=== PATIENT | female | born 1935 | race Caucasian/White ===

== ENCOUNTER 2017-06-16 09:31 | Outpatient (CLI) | payer MEDICARE, OTHER ==
--- NOTE | 2017-06-16 11:09 | RAD ---
UPPER GI SERIES WITH DOUBLE CONTRAST: Date: 06-16-17 History: 81-year-old female with dysphagia. Technique: Upright administration of effervescent granules and thick liquid barium. Prone DA SILVA administration of thin liquid barium. FINDINGS: There is herniation of approximately a third of the volume of the stomach superior to the diaphragm. There are tertiary contractions of the mid and distal esophagus. The distal esophagus is displaced by the gastric herniation, and the esophagogastric junction itself is obscured by the hiatal hernia. Th ere is no gastric outlet obstruction and no gross abnormality of the rest of the stomach is identifie d. IMPRESSION: Moderate sized paraesophageal hiatal hernia. POS: [facility]
== END 2017-06-16 09:32 | disposition home or self-care (01) ==
LOC: RAD 09:31
PROVIDERS: ATTEND Internal Medicine Gastroenterology
DX: R13.10 Dysphagia, unspecified (principal); K44.9 Diaphragmatic hernia without obstruction or gangrene
CPT/HCPCS: 74247

== ENCOUNTER 2017-08-02 11:09 | Outpatient (CLI) | payer MEDICARE, OTHER ==
[2017-08-02 12:36] LABS: #Basophils 0.1 thou/uL (0.0-0.2); #Eosinphils 0.1 thou/uL (0.0-0.7); #Lymphocytes 1.5 thou/uL (1.20-3.40); #Monocytes 0.5 thou/uL (0.11-0.59); #Neutrophils 4.3 thou/uL (1.40-6.50); %Basophils 0.9 % (0.0-1.0); %Eosinophils 1.7 % (0.0-10.0); %Lymphocytes 22.9 % (21.0-51.0); %Monocytes 8.1 % (0.0-10.0); %Neutrophils 66.4 % (42.0-75.0); Hemoglobin 12.8 g/dL (12.0-16.0); Mean Corpuscular HGB CONC 31.1 g/dL (32.0-36.0); Mean Corpuscular Volume 80.2 fl (81.0-99.0); Mean Platelet Volume 7.5 fL (7.4-10.4); Platelet Count 306 thou/uL (130-400); RBC Distribution Width 13.5 % (11.5-14.5); Red Blood Cell (RBC) Count 5.14 mill/uL (4.20-5.40); White Blood Cell (WBC) Count 6.5 thou/uL (4.8-10.8)
[2017-08-02 12:57] LABS: ALT (SGPT) 15 U/L (8-55); AST (SGOT) 19 U/L (5-34); Albumin 4.5 g/dL (3.4-4.8); Alkaline Phosphatase 86 U/L (40-150); Anion Gap 16 mmol/L (10-20); BUN (Urea Nitrogen) 14 mg/dL (9.8-20.1); Bilirubin, Total 0.5 mg/dL (0.2-1.2); Calc. Creatinine Clearance 0 mL/min (70-130); Calcium 9.5 mg/dL (7.8-10.44); Carbon Dioxide 21 mmol/L (23-31); Chloride 104 mmol/L (98-107); Estimated GFR-MDRD 64; Globulin 2.6 g/dL (2.4-3.5); Glucose 90 mg/dL (83-110); Potassium 4.4 mmol/L (3.5-5.1); Protein, Total 7.1 g/dL (6.0-8.3); Sodium 137 mmol/L (136-145)
--- NOTE | 2017-08-03 23:38 | EKG ---
Test Reason : Blood Pressure : / mmHG Vent. Rate : 077 BPM Atrial Rate : 077 BPM P-R Int : 194 ms QRS Dur : 082 ms QT Int : 386 ms P-R-T Axes : 005 -34 028 degrees QTc Int : 436 ms Normal sinus rhythm Left axis deviation Voltage criteria for left ventricular hypertrophy Abnormal ECG No previous ECGs available Confirmed by Rosas DOMINGUEZ ([id number]) on 08/03/2017 11:38:17 PM Referred By: MYRNA Confirmed By:Rosas DOMINGUEZ
== END 2017-08-02 11:10 | disposition home or self-care (01) ==
LOC: LABBT 11:09
PROVIDERS: ATTEND Surgery
DX: Z01.810 Encounter for preprocedural cardiovascular examination (principal); Z01.812 Encounter for preprocedural laboratory examination; K44.9 Diaphragmatic hernia without obstruction or gangrene
CPT/HCPCS: 80053; 85025; 93005; 93010

== ENCOUNTER 2017-08-04 06:38 | Inpatient (IN) | payer MEDICARE, OTHER ==
[2017-08-02 11:31] VITALS: BMI 29.2
[2017-08-04] MEDS ORDERED: CEFAZOLIN/Water 2 GM/20 ML SYRINGE ONE (08:22)
[2017-08-04] MEDS ORDERED: Bupivacaine 0.25% HCL 30 ML VIAL ONE (09:54)
[2017-08-04] MEDS ORDERED: Lidocaine 2% w/Epinephrine 1:200K 20 ML VIAL ONE (09:54)
[2017-08-04] MEDS ORDERED: Fentanyl 100 MCG/2 ML VIAL ONE ×2 (10:12)
[2017-08-04] MEDS ORDERED: diphenhydrAMINE 50 MG/ML VIAL IVP PRN ×2 (12:14→13:25)
[2017-08-04] MEDS ORDERED: Promethazine HCl 25 MG/ML VIAL IM PRN ×2 (12:14→13:25)
[2017-08-04] MEDS ORDERED: Dextrose 50% Abboject 50 ML SYRINGE SLOW IVP PRN (12:14)
[2017-08-04] MEDS ORDERED: Ondansetron HCl/PF 4 MG/2 ML Vial IVP PRN ×2 (12:14→18:04)
[2017-08-04] MEDS ORDERED: hydrALAZINE 20 MG/ML VIAL SLOW IVP PRN (12:14)
[2017-08-04] MEDS ORDERED: Hydrocodone-Acetamin 15 ML UDCUP PO PRN (12:14)
[2017-08-04] MEDS ORDERED: Dextrose 5% in Water 1,000 ML IV PRN (12:14)
[2017-08-04] MEDS ORDERED: Meperidine HCl/PF 25 MG/ML VIAL SLOW IVP PRN (12:37)
[2017-08-04] MEDS ORDERED: Morphine Sulfate 2 MG/ML SYRINGE SLOW IVP PRN (12:37)
[2017-08-04] MEDS ORDERED: Promethazine HCl 25 MG/ML VIAL SLOW IVP PRN (12:37)
--- NOTE | 2017-08-04 12:47 | OP ---
PREOPERATIVE DIAGNOSIS: Paraesophageal hernia. SURGEON: Deshaun Torrez M.D. PROCEDURE PERFORMED: Laparoscopic paraesophageal hernia repair with mesh and EGD. INDICATIONS: An 81-year-old female, who has been having quite a bit of dysphagia and some dyspnea. A CT showed a large paraesophageal hernia. This was confirmed by EGD. FINDINGS: About half of her stomach was intrathoracic. PROCEDURE IN DETAIL: After informed consent was obtained, the patient was taken to the operating delia m and given general endotracheal anesthesia, placed in the supine position. Abdomen was prepped and draped in the usual fashion. Local anesthesia infiltrated subcutaneously and deep and a 5-mm incisio n was performed about 8 inches below the xiphoid slight to the left. Veress needle inserted. Drop t est performed. Pneumoperitoneum was created to a volume of 2 liters of carbon dioxide. Utilizing a bladeless 5-mm trocar and 0-degree laparoscope direct visual entry in the abdominal cavity was perfor med. Pneumoperitoneum was then created to a pressure of 15 mmHg. A 0-degree laparoscope inserted un osvaldo direct vision and Brandon liver retractor inserted. Left lobe of liver retracted superiorly. The patient placed in steep reverse Trendelenburg position and a 5-mm port was placed just to the lef t of the falciform, an 8-mm port placed left lateral, and then another 5-mm port placed inferiorly on the left side. A large amount of stomach was intrathoracic, most of which could be reduced, but the n there were some that was still attached with peritoneal adhesions. These were taken down utilizing the LigaSure. Then the peritoneum opened along the right crura with the LigaSure along the anterior surface of the crura and then on the left crura. Then, I was able to create a retroesophageal windo w. A Francis drain then placed around the esophagus allowing me to retract superiorly to completely expose the hiatal opening circumferentially. At this point, the short gastrics were taken down utili zing the LigaSure. A 40-Greek bougie was then inserted and directed into the stomach and a posterio r crural plication was performed utilizing 0-Ethibond with the Sew-Right and tie knot device. Then, the biologic mesh was inserted and placed around the esophagus and sutured to the crura both anterior right and left. Then the Francis drain was removed and the fundus was grasped and brought to the [facility] side of the esophagus. It was sutured from the left fundus to the esophagus to the right fundus with interrupted 2-0 silk sutures tied intracorporeally. This was with the bougie in place. At this point, once the wrap was completed, some TISSEEL tissue sealer was then placed around both the mesh and the wrap to further secure it. The bougie was removed, and an intraoperative endoscopy was perfo rmed. The video endoscope inserted under direct vision and advanced into the stomach. The stomach w as insufflated and retroflexed. The wrap looked good. There was no paraesophageal component, no tor carl. The stomach decompressed. The scope removed. Trocars and retractors then removed. Skin clos ed with interrupted 4-0 Rapide. Dermabond applied. The patient tolerated the procedure well and tra nsferred to recovery in good condition. Sponge and needle count verified correct x2.
[2017-08-04] MEDS ORDERED: Morphine 2 MG/ML SYRINGE ONE (12:54)
[2017-08-04] MEDS ORDERED: D5 1/2 NS w/20 mEq KCL 1,000 ML ONE (13:11)
[2017-08-04] MEDS ORDERED: Fentanyl 5000 MCG/250 ML CADD IVPB PRN (13:25)
[2017-08-04] MEDS ORDERED: diphenhydrAMINE 50 MG/ML VIAL IM PRN (13:25)
[2017-08-04] MEDS ORDERED: Zolpidem Tartrate 5 MG TAB PO PRN (13:25)
[2017-08-04] MEDS ORDERED: diphenhydrAMINE 25 MG CAP PO PRN (13:25)
[2017-08-04] MEDS ORDERED: Naloxone HCl 0.4 mg/ml Vial IV PRN (13:25)
[2017-08-04] MEDS ORDERED: Communication Order-Pharmacy FS SCH (13:30)
[2017-08-04] MEDS ORDERED: Fentanyl 20 MCG/ML 250 ML ONE (14:00)
[2017-08-04] MEDS ORDERED: Lidocaine 1% PF 5 ML VIAL ONE (15:41)
[2017-08-04] MEDS ORDERED: PHENYLEPHRINE-NS 100 MCG/ML 10 ML SYRINGE ONE (15:41)
[2017-08-04] MEDS ORDERED: Glycopyrrolate 0.2 MG/ML 5 ML SYRINGE ONE (15:41)
[2017-08-04] MEDS ORDERED: ePHEDrine/0.9% NaCl/PF SYRINGE 50 mg/10 ml ONE (15:41)
[2017-08-04] MEDS ORDERED: Dexamethasone 20 MG/5 ML VIAL ONE (15:41)
[2017-08-04] MEDS ORDERED: Ondansetron HCl/PF 4 MG/2 ML Vial ONE (15:41)
[2017-08-04] MEDS ORDERED: Propofol 200 MG/20 ML VIAL ONE (15:41)
[2017-08-04] MEDS: D5 1/2 NS w/20 mEq KCL 1,000 ML IV SCH ×2 (17:06→22:05)
[2017-08-04] MEDS: CEFAZOLIN/Water 2 GM/20 ML SYRINGE SLOW IVP SCH (18:40)
[2017-08-05] MEDS: CEFAZOLIN/Water 2 GM/20 ML SYRINGE SLOW IVP SCH (02:39)
[2017-08-05] MEDS: D5 1/2 NS w/20 mEq KCL 1,000 ML IV SCH ×2 (02:39→12:29)
[2017-08-05 05:44] LABS: #Lymphocytes 1.6 thou/uL (1.20-3.40); %Basophils 0.1 % (0.0-1.0); %Eosinophils 0.1 % (0.0-10.0); %Lymphocytes 11.7 % (21.0-51.0); %Monocytes 7.4 % (0.0-10.0); %Neutrophils 80.8 % (42.0-75.0); Hemoglobin 12.2 g/dL (12.0-16.0); Mean Corpuscular HGB CONC 30.9 g/dL (32.0-36.0); Mean Corpuscular Hemoglobin 25.3 pg (27.0-31.0); Mean Corpuscular Volume 81.8 fl (81.0-99.0); Mean Platelet Volume 7.8 fL (7.4-10.4); Platelet Count 302 thou/uL (130-400); RBC Distribution Width 13.8 % (11.5-14.5); Red Blood Cell (RBC) Count 4.83 mill/uL (4.20-5.40); White Blood Cell (WBC) Count 13.6 thou/uL (4.8-10.8)
[2017-08-05 05:56] LABS: Anion Gap 15 mmol/L (10-20); BUN (Urea Nitrogen) 11 mg/dL (9.8-20.1); Calc. Creatinine Clearance 52 mL/min (70-130); Calcium 9.2 mg/dL (7.8-10.44); Carbon Dioxide 25 mmol/L (23-31); Chloride 100 mmol/L (98-107); Estimated GFR-MDRD 59; Glucose 135 mg/dL (83-110); Potassium 4.6 mmol/L (3.5-5.1); Sodium 135 mmol/L (136-145)
[2017-08-05] MEDS ORDERED: Enoxaparin Sodium 40 MG/0.4 ML SYRINGE SC SCH (09:00)
--- NOTE | 2017-08-05 10:05 | RAD ---
UPPER GI SERIES SINGLE COLUMN: Date: 08/05/17 HISTORY: 81-year-old female status post hiatal hernia repair surgery. TECHNIQUE: Patient incrementally swallowed one cup of Gastrografin in the upright position, while fluoroscopy wa s performed. Recumbent overhead radiographic images were obtained. COMPARISON: 06/16/17. FINDINGS: The previously demonstrated moderate sized paraesophageal hiatal hernia has been surgically reduced. Now there is narrowing of the esophagogastric junction, and mild dilation of the rest of the esophagu s, but no high grade obstruction. There is no gastric outlet obstruction, but there is decreased kylee stalsis. There is vertebroplasty cement within the L1 and L2 vertebral bodies. IMPRESSION: 1. Status post fundoplication repair of hiatal hernia. 2. No evidence of major complication. 3. Prior vertebroplasty treatment of L1 and L2 compression fractures. POS: [facility]
[2017-08-05 11:56] VITALS: BP 130/74; TEMP 98
[2017-08-05] MEDS ORDERED: Hydrocodone-Acetamin 15 ML UDCUP PO PRN (13:30)
--- NOTE | 2017-08-05 13:54 | DIS ---
DATE OF ADMISSION: 08/04/2017 DATE OF DISCHARGE: 08/05/2017 DISCHARGE DIAGNOSIS: Large paraesophageal hernia. PROCEDURES DURING ADMISSION: Laparoscopic paraesophageal hernia repair with mesh, intraoperative eso phagogastroscopy, postoperative Gastrografin swallow. HOSPITAL COURSE: The patient was admitted, taken to the operating room where she underwent a repair of the hiatal hernia. Postoperatively, she has done well. X-ray was fine. She was started on liqui ds. She is tolerating well. She is discharged home. Pain is controlled on p.o. medications. She i s discharged on hydrocodone, elixir and Zofran. She will follow up with me in 2 weeks.
[2017-08-05] MEDS ORDERED: Pantoprazole 40 MG VIAL IVP SCH (21:00)
== END 2017-08-05 14:57 | disposition home or self-care (01) | DRG 328 ==
LOC: SDC 06:38 → SURG A 12:14
PROVIDERS: ADMIT Surgery; ATTEND Surgery
PROC: 0BUT4KZ Supplement Diaphragm with Nonautologous Tissue Substitute, Percutaneous Endoscopic Approach (ICD-10-PCS; principal; 2017-08-04)
DX: K44.9 Diaphragmatic hernia without obstruction or gangrene (principal); R06.00 Dyspnea, unspecified; R13.10 Dysphagia, unspecified; I10 Essential (primary) hypertension; Z86.711 Personal history of pulmonary embolism; E03.9 Hypothyroidism, unspecified; E78.2 Mixed hyperlipidemia
CPT/HCPCS: 36415; 74241; 80048; 80053; 85025; 93005; 93010; 94760; J0131; J1100; J1650; J2001; J2270; J2405; J2704; J3010; Q4130; S0020

== ENCOUNTER 2017-11-02 13:02 | Outpatient (CLI) | payer MEDICARE, OTHER ==
--- NOTE | 2017-11-02 14:30 | RAD ---
XR SNIFF TEST: HISTORY: Paralyzed diaphragm. COMPARISON: Chest radiograph from 09/30/2017. FINDINGS: Road Inspector radiograph of the chest demonstrates elevation of the right hemidiaphragm, as well as some thic kening of the right minor fissure. The left lung is relatively clear. A few left basilar nodular op acities. Using the sniff test, there was decreased/no excursion of the right hemidiaphragm. The lef t hemidiaphragm had normal excursion. IMPRESSION: Right diaphragmatic paralysis. POS: [facility]
--- NOTE | 2017-11-04 16:26 | PFT ---
PATIENT HISTORY: HEIGHT: 60 IN WEIGHT:146 SMOKER: NO HOW LONG: PACKS PER DAY PRODUCTIVE COUGH: LUNG DISEASE: PHYSICIAN INTERPRETATION FINAL REPORT: Tool Repair Technician comments patient and good effort and cooperation. She was unable to complete the flow volume loop PRE-bronchodilator. PFT DATA: FVC 1.50 (72%), FEV1 1.21 (89%), FEV1/FVC 0.80. TLC 2.70 (71%), FRC 1.33 (58%), RV 1.06 (62%). Diffusion 10.28 (68%). The FEV1 and FVC are at the lower limits of normal. The reduction is fairly symmetric, suggesting a restrictive process. There is no significant improvement following administration of bronchodilator. TLC and RV are mildly impaired, confirming volume restriction. Diffusion capacity is also just below the lower limits of normal. IMPRESSION: These pulmonary function studies are consistent with mild restrictive lung disease, and mild impairment in gas exchange. Clinical and radiographic correlation for interstitial process should be considered. Tool Repair Technician: JAYLEEN Metal Polisher And Buffer Apprentice: JAYLEEN AMADOR
== END 2017-11-02 13:03 | disposition home or self-care (01) ==
LOC: RAD 13:02
PROVIDERS: ATTEND Internal Medicine
DX: R06.09 Other forms of dyspnea (principal); J98.6 Disorders of diaphragm
CPT/HCPCS: 76000; 94060; 94727; 94729

== ENCOUNTER 2018-03-26 15:37 | Emergency (ER) | payer MEDICARE, OTHER ==
[2018-03-26] MEDS ORDERED: Morphine 4 MG/ML VIAL ONE (16:35)
--- NOTE | 2018-03-26 16:50 | CT ---
CT ABDOMEN AND PELVIS WITHOUT CONTRAST 03/26/18 HISTORY: Abdominal pain. COMPARISON: None. FINDINGS: There is a calcified subcarinal lymph nodes. Scarring in the lung bases. No pericardial effusion. There is calcified pleural plaque right lung base. Cholelithiasis is present. No hydroureteronephrosis or nephroureterolithiasis. No secondary evidence of recently passed stone. There is as large sliding hiatal hernia. Noncontrast evaluation of the liver and spleen are unremarka ble as well as the pancreas and adrenals glands. Aortic contour is nonaneurysmal. Multiple compression fractures throughout the lumbar spine and thoracic spine with a few containing c ement at L1 and L2. The T12 compression fracture does not contain cement nor does the L4 compression fracture. IMPRESSION: 1. No nephroureterolithiasis or hydroureteronephrosis. No secondary evidence of recently passed stone. 2. Multiple compression deformities thoracolumbar spine, a few of which contain cement. 3. Moderate sliding hiatal hernia. 4. Cholelithiasis without cholecystitis. POS: [facility]
[2018-03-26 17:09] LABS: #Basophils 0.1 thou/uL (0.0-0.2); #Eosinphils 0.3 thou/uL (0.0-0.7); #Lymphocytes 2.4 thou/uL (1.20-3.40); #Monocytes 0.9 thou/uL (0.11-0.59); %Basophils 1.4 % (0.0-1.0); %Eosinophils 2.9 % (0.0-10.0); %Lymphocytes 24.8 % (21.0-51.0); %Monocytes 9.2 % (0.0-10.0); %Neutrophils 61.7 % (42.0-75.0); Elliptocytes SLIGHT = 2-5 cells (100X) (0-1/hpf); Hemoglobin 13.4 g/dL (12.0-16.0); Hypochromia SLIGHT = 6-15 cells (100X) (0-5/hpf); MDiff Complete? YES; Mean Corpuscular HGB CONC 31.3 g/dL (32.0-36.0); Mean Corpuscular Hemoglobin 24.6 pg (27.0-31.0); Mean Corpuscular Volume 78.6 fL (78.0-98.0); Mean Platelet Volume 6.6 fL (7.4-10.4); Microcytosis SLIGHT = 6-15 cells (100X) (0-5/hpf); PLT Morphology Comment Appears Adequate; Platelet Count 353 thou/uL (130-400); RBC Distribution Width 12.5 % (11.5-14.5); Red Blood Cell (RBC) Count 5.44 mill/uL (4.20-5.40); Tear Drops SLIGHT = 2-5 cells (100X) (0-1/hpf); White Blood Cell (WBC) Count 9.7 thou/uL (4.8-10.8)
[2018-03-26 17:20] LABS: ALT (SGPT) 10 U/L (8-55); AST (SGOT) 13 U/L (5-34); Albumin 4.1 g/dL (3.4-4.8); Alkaline Phosphatase 101 U/L (40-150); Anion Gap 13 mmol/L (10-20); BUN (Urea Nitrogen) 14 mg/dL (9.8-20.1); Bilirubin, Total 0.3 mg/dL (0.2-1.2); Calc. Creatinine Clearance 0 mL/min (70-130); Calcium 9.4 mg/dL (7.8-10.44); Carbon Dioxide 27 mmol/L (23-31); Chloride 98 mmol/L (98-107); Estimated GFR-MDRD 56; Globulin 2.9 g/dL (2.4-3.5); Glucose 98 mg/dL (83-110); Lipase 28 U/L (8-78); Potassium 4.3 mmol/L (3.5-5.1); Sodium 134 mmol/L (136-145)
[2018-03-26] MEDS ORDERED: Ketorolac Tromethamine 30 MG/ML VIAL ONE (18:03)
[2018-03-26 18:12] LABS: Bilirubin Negative (Negative); Blood, Urine Trace (Negative); Clarity Slightly Cloudy (Clear); Glucose, Urine (Dipstick) Negative (Negative); Leukocyte Small (Negative); Nitrite Positive (Negative); Protein, Urine (Dipstick) Negative (Neg-Trace); Specific Gravity, Urine 1.015 (1.005-1.030); Urobilinogen 0.2 mg/dL (0.2-1.0); pH, Urine 7.5 (5.0-9.0)
[2018-03-26 18:17] LABS: Bacteria/HPF 4+ HPF (None Seen); Squamous Epithelial 0-3 HPF (0-3)
== END 2018-03-26 18:25 | disposition home or self-care (01) ==
LOC: SCSER 15:37
DX: N39.0 Urinary tract infection, site not specified (principal); M54.5 Low back pain; E03.9 Hypothyroidism, unspecified; I10 Essential (primary) hypertension; F41.9 Anxiety disorder, unspecified; Z79.899 Other long term (current) drug therapy
CPT/HCPCS: 74176; 80053; 81003; 81015; 83690; 85025; 87077; 87086; 87186; 96372; J1885; J2270

== ENCOUNTER 2018-04-05 11:15 | Outpatient (CLI) | payer MEDICARE, OTHER ==
--- NOTE | 2018-04-05 14:22 | RAD ---
LUMBAR SPINE 2 VIEWS: Date: 04/05/18 HISTORY: Lumbar disc degeneration. FINDINGS/IMPRESSION: There is compression of L4, L2, L1, and T12 vertebral bodies. There are postop changes of vertebropla sty seen at L1 and L2 levels. Bones are osteopenic. No significant retropulsion is seen. POS: [facility]
--- NOTE | 2018-04-05 15:31 | MRI ---
MRI OF THE LUMBAR SPINE WITH AND WITHOUT CONTRAST: Date: 04/05/18 INDICATION: History of lumbar disc degenerative disease with chronic back pain. COMPARISON: Lumbar spine radiograph dated 04/05/18. MRI lumbar spine dated 04/14/14. TECHNIQUE: Multiplane, multisequence MR images were obtained of the lumbar spine with and without contrast utili zing 13 mL of MultiHance. FINDINGS: There is an acute sub end plate fracture involving the superior aspect of L4 with approximately 10-15 % loss of height. There are remote wedge compression abnormalities involving L2, L1, and T12. There i s vertebroplasty change at L1 and L2, stable. Conus is seen to terminate at approximately L1-L2. Ther e are small cysts involving the right kidney. No free fluid or enlarged lymph nodes are evident. At the L5-S1 level, there is a broad based bulge with facet joint degenerative change and loss of dis c space height, inducing mild neural foraminal narrowing. At L4-5, there is a broad based bulge with facet hypertrophy inducing mild bilateral neural foraminal narrowing. At L3-4, there is a broad based bulge with facet hypertrophy inducing mild bilateral neural foraminal narrowing. At L2-3, there is a broad based bulge with mild bilateral neural foraminal narrowing. At L1-22, there is a mild broad based bulge with mild bilateral neural foraminal narrowing, right gre ater than left. At T12-L1, there is some retropulsed bone fragments from the chronic L1 compression fracture causing mild central canal narrowing. At T11-T12, there is retropulsion of bone fragments from posterior superior margin of T12 causing monique e mild central canal narrowing. Postcontrast images demonstrate no definite abnormal enhancement. IMPRESSION: 1. Acute superior end plate compression fracture of L4 with approximately 10-15% loss of height. 2. Multilevel spondylosis of the lumbar spine. The extent of the disc degenerative facet osteoarthri tic change of the lumbar spine appears to have mildly progressed from the comparison examination. 3. Chronic compression abnormalities of T12 through L2. There is stable vertebroplasty change at L1 and L2. POS: [facility]
== END 2018-04-05 11:16 | disposition home or self-care (01) ==
LOC: TBSIIMAG 11:15
PROVIDERS: ATTEND Neurological Surgery
DX: M51.36 Other intervertebral disc degeneration, lumbar region (principal); S32.049A Unspecified fracture of fourth lumbar vertebra, initial encounter for closed fracture; S32.000D Wedge compression fracture of unspecified lumbar vertebra, subsequent encounter for fracture with routine healing; S22.080D Wedge compression fracture of T11-T12 vertebra, subsequent encounter for fracture with routine healing; M85.88 Other specified disorders of bone density and structure, other site; M47.896 Other spondylosis, lumbar region; Z98.890 Other specified postprocedural states
CPT/HCPCS: 72100; 72158

== ENCOUNTER 2018-05-17 16:01 | Outpatient (CLI) | payer MEDICARE, OTHER ==
--- NOTE | 2018-05-17 17:46 | RAD ---
LUMBAR SPINE TWO VIEWS: 05/17/18 HISTORY: 82-year-old female with history of M51.36 - other intervertebral disc disease lumbar region, low back pain. COMPARISON: 04/05/18. FINDINGS: Less than 50% vertical height anterior compression fracture of L4 which appears slightly more amber sed than on the prior study with some mild superior retropulsion. Status post vertebroplasty changes are noted at L2 and L1 as well as some stable vertical height loss of T12. There is very severe bon d emineralization. IMPRESSION: AP and lateral views of the lumbar spine demonstrates slight progressive vertical height loss of the L4 vertebral body and superior end plate compression fracture with slight retropulsion, otherwise st able lumbar spine. POS: [facility]
== END 2018-05-17 16:02 | disposition home or self-care (01) ==
LOC: TBSIIMAG 16:01
PROVIDERS: ATTEND Neurological Surgery
DX: M51.36 Other intervertebral disc degeneration, lumbar region (principal); M48.56XA Collapsed vertebra, not elsewhere classified, lumbar region, initial encounter for fracture
CPT/HCPCS: 72100

== ENCOUNTER 2018-06-15 11:04 | Outpatient (CLI) | payer MEDICARE, OTHER ==
--- NOTE | 2018-06-15 12:01 | MRI ---
MRI LUMBAR SPINE WITHOUT CONTRAST: HISTORY: Compression fracture with delayed healing. Compression fracture of L5. COMPARISON: 05/23/2018 TECHNIQUE: An MRI of the lumbar spine is performed without intravenous Gadolinium administration. Multisequenti al, multiplanar imaging is performed. FINDINGS: Stable loss of vertebral body height at T12. There is evidence of stable loss of vertebral body height and vertebroplasty change at L1-L2. No acu te edema. Stable retropulsion. Interval vertebroplasty at L3 and L4. Abnormal T1 marrow signal intensity, suggesting edema, with as sociated T2 and STIR hyperintensity. There has been no significant loss in terms of vertebral body h eight at L3 and L4. There is appropriate T1 marrow signal intensity of L5. No evidence of edema to suggest an L5 fracture. Symmetric signal intensity of the psoas muscles. Appropriate signal intensity of the visualized kari d organs. Redemonstration of bilateral extrarenal collecting system and right renal cyst. The conus medullaris terminates at the L1 level. T12-L1: No significant central canal stenosis. The neural foramina are patent. L1-L2: No significant central canal stenosis. The neural foramina are patent. L2-L3: No significant central canal stenosis. The neural foramina are patent. L3-L4: Generalized disk bulge, ligamentum flavum thickening, and facet hypertrophy result in moderat e central canal stenosis. Mild to moderate bilateral foraminal narrowing. L4-L5: No high-grade central canal stenosis. The neural foramina are patent bilaterally. L5-S1: No significant posterior disk abnormality. No significant central canal stenosis. Mild bila teral foraminal narrowing. IMPRESSION: 1. Stable vertebroplasty change at L1-L2. No significant loss of vertebral body height. 2. Interval vertebroplasty change at L3-L4. There is edema. No significant change in terms of loss of vertebral body height. 3. Appropriate marrow signal intensity and maintenance of vertebral body height at L5. No evidence of an L5 compression fracture. 4. Degenerative change of the lumbar spine, as above. Improved central canal stenosis at L3-L4. POS: [facility]
== END 2018-06-15 11:05 | disposition home or self-care (01) ==
LOC: TBSIIMAG 11:04
PROVIDERS: ATTEND Nurse Practitioner Family
DX: M48.56XA Collapsed vertebra, not elsewhere classified, lumbar region, initial encounter for fracture (principal); M47.816 Spondylosis without myelopathy or radiculopathy, lumbar region; M48.061 Spinal stenosis, lumbar region without neurogenic claudication
CPT/HCPCS: 72148

== ENCOUNTER 2018-07-25 14:14 | Outpatient (CLI) | payer MEDICARE, OTHER ==
--- NOTE | 2018-07-25 16:42 | MRI ---
MRI THORACIC SPINE NONCONTRAST: HISTORY: Back pain. Compression fracture. COMPARISON: 04/24/2014 FINDINGS: The oval mass, likely representing an atypical hemangioma, within the anterior aspect of the T9 verte bral body, is stable compared to the previous study. There is desiccation of all the intervertebral disks. A small hiatal hernia is again demonstrated. C7-T1/T1-T2/T2-T3/T3-T4/T4-T5/T5-T6/T6-T7/T7-T8/T8-T9/T9-T10/T10-T11: Mild osteophytosis. The centr al canal and neural foramina are patent. Vertebral body heights are maintained. T11-T12: Partial compression of the T12 superior endplate, with loss of height by approximately 15%, is similar in appearance to the prior study. No residual edema. Minimal retropulsion is stable. T he thecal sac and neural foramina remain patent. T12-L1: L2 burst fracture with vertebroplasty cement appears stable. Minimal retropulsion. Central canal and neural foramina remain patent. IMPRESSION: Mild degenerative changes of the thoracic spine without focal disk herniation or nerve root compressi on. Mild chronic compression of the T12 superior endplate is stable. POS: [facility]
--- NOTE | 2018-07-25 16:54 | MRI ---
MRI CERVICAL SPINE NONCONTRAST: HISTORY: Neck pain without radiation. FINDINGS: Vertebral body height and alignment are maintained. There is desiccation of all the intervertebral d isks. C2-C3/C3-C4: Mild osteophytosis. Central canal and neural foramina are patent. C4-C5: Disk space narrowing. Posterior osteophytes/disk complex and circumferential degenerative ch anges. Moderate to severe stenosis of the central canal. Moderate right and severe left foraminal s tenosis. No abnormal signal within the spinal cord. C5-C6: Disk space narrowing. Mild circumferential degenerative changes with mild stenosis of the ce ntral canal. Moderate right foraminal stenosis. C6-C7: Disk space narrowing. Posterior osteophyte/disk complex and circumferential degenerative santos nges. Moderate stenosis of the central canal and left neural foramina. C7-T1: Mild osteophytosis. Central canal and neural foramina are patent. IMPRESSION: 1. Multilevel degenerative changes throughout the cervical spine. Foraminal and central canal steno ses are most pronounced at the C4-C5 level. 2. No evidence of myelomalacia. POS: [facility]
== END 2018-07-25 14:15 | disposition home or self-care (01) ==
LOC: SCSMRI 14:14
PROVIDERS: ATTEND Anesthesiology Pain Medicine
DX: S32.059A Unspecified fracture of fifth lumbar vertebra, initial encounter for closed fracture (principal); M47.812 Spondylosis without myelopathy or radiculopathy, cervical region; M48.02 Spinal stenosis, cervical region; M47.814 Spondylosis without myelopathy or radiculopathy, thoracic region; G95.20 Unspecified cord compression
CPT/HCPCS: 72141; 72146

== ENCOUNTER 2019-12-31 01:29 | Observation (INO) | payer MEDICARE ==
[2019-12-31] MEDS ORDERED: Aspirin Chewable 81 MG TAB ONE (02:38)
[2019-12-31 04:11] VITALS: BMI 29.3
[2019-12-31] MEDS ORDERED: Acetaminophen 325 MG TAB PO PRN (04:53)
[2019-12-31] MEDS ORDERED: Ibuprofen 600 MG TAB PO SCH (05:15)
[2019-12-31] MEDS ORDERED: Sodium Chloride 0.9% 1,000 ML IV SCH (05:15)
[2019-12-31] MEDS ORDERED: Levothyroxine Sodium 100 MCG TAB PO SCH (06:00)
--- NOTE | 2019-12-31 06:00 | HP ---
CHIEF COMPLAINT: Dizziness. HISTORY OF PRESENT ILLNESS: The patient is a very pleasant 84-year-old female with a past medical history of vertigo and hypertension, who presents to the hospital with complaints of vertigo x1 day. The patient stated that she woke up this morning on Wednesday morning, had vertigo all day. She described as the room spinning. She also has significant amount of nausea and vomiting. She was unable to keep any of her medications down. At this time, she initially thought that her vertigo would improve. However, it did not. She went to bed. She woke up to go to the bathroom, had significant amount of vertigo to the point that she could not hold her balance and she fell. She then crawled to the bathroom and then called her sister, who was visiting her for help and at this time, she was brought into the hospital. She denies any fevers or chills, any sick contacts, or any chest pain. The patient; however, does state that she has had significant amount of nausea and vomiting all day. She could not keep not even crackers down. PAST MEDICAL HISTORY: The patient's past medical history is as of the following, she has a history of hypothyroidism. She has a history of hypertension. She has a history of vertigo, diverticulitis, IBS, pulmonary embolism, and osteoporosis. PAST SURGICAL HISTORY: She has had a hernia repair, knee surgery, and hysterectomy. FAMILY HISTORY: Father , diagnosed of hypertension. Mother disease had ovarian and breast cancer. REVIEW OF SYSTEMS: All negative except for the ones mentioned above in the HPI. MEDICATIONS: As of the following, the patient is on; 1. Metoprolol 50 mg daily. 2. Lisinopril 40 mg daily. 3. Levothyroxine 100 mcg daily. 4. Celexa 40 mg daily. 5. Ibuprofen 600 mg b.i.d. p.r.n. 6. Omeprazole 20 mg daily. 7. Restoril 30 mg at bedtime. PHYSICAL EXAMINATION: VITAL SIGNS: Temperature of 98.6, heart rate 72, respiratory rate 15, O2 saturation 95% on room air, and blood pressure of 145/66. GENERAL: She is awake, alert, and oriented x3. Does not appear in distress. CV: S1 and S2 present. No murmurs, rubs, or gallops. Sinus. LUNGS: Clear to auscultation. No rhonchi or wheezes noted. ABDOMEN: Soft and nontender. Bowel sounds are present x2. EXTREMITIES: No edema. Pedal pulses are present x2. NEUROLOGIC: Neurovascular steele, no focal deficits noted. HEENT: She does have significant nystagmus on movement of her eyes. SKIN: She has significant ecchymosis in bilateral upper extremities and around her left eyelid and her left forehead and left facial area. LABORATORY RESULTS: WBCs of 10.5, hemoglobin of 13.1, hematocrit of 44.2, her MCV is 76.5, and platelets of 266. Chemistry; sodium of 133, potassium 3.7, BUN of 12, and creatinine 0.92. Troponin x1 is negative. She had a CTA, which I was told was negative and a CT brain, which I was told was negative. She also had a cervical spine CT, which indicated no evidence of fracture or trauma. ASSESSMENT AND PLAN: The patient is a very pleasant 84-year-old female, who presents to the hospital with a significant amount of vertigo. 1. Vertigo. The patient has significant amount of vertigo to the point that she had nausea and vomiting and was unable to keep anything down. We will go ahead and get an MRI brain to rule out any sort of a stroke; however, I think this is unlikely. But given her age, I think we need to rule out a stroke. I will start her on aspirin, keep her on the statin. Neurology has been consulted. 2. Dehydration. The patient appears to be clinically appears to be very dry. I will start her on some gentle hydration. Continue to monitor. 3. Hypertension, uncontrolled. She has not been able to take any of her medications this morning. We will start her on some p.r.n. and also we will control her headache with some pain medications. The patient states that she took meclizine; however, she was unable to keep it down because of her nausea and threw it up. She currently states that she feels well. 4. Deep venous thrombosis prophylaxis. We will put the patient on subcu Lovenox. Job ID: [id number]
[2019-12-31] MEDS: Meclizine HCl 25 MG TAB PO SCH ×2 (06:12→13:22)
--- NOTE | 2019-12-31 07:09 | CT ---
PRELIMINARY REPORT/[facility]/AFTER HOURS PROCEDURE CTA HEAD AND NECK WITH INTRAVENOUS CONTRAST: CT HEAD WITHOUT CONTRAST: CLINICAL HISTORY: C/o dizziness upon waking this morning - subsequent fall; left orbital swelling, (-) LOC threw up jonas e meclizine this morning Horizontal nystagmus bilateral eyes. TECHNIQUE: Axial CTA images of the head and neck performed with intravenous contrast. MIP reconstructed images w ere created and reviewed. Axial computed tomography images of the head/brain performed without intravenous contrast. Note: Per PQRS, the description of internal carotid artery percent stenosis, including 0 percent or n ormal exam, is based on [place] Symptomatic Carotid Endarterectomy Trial (NASCET) criteria. CONTRAST: Isovue-370 70 mL. COMPARISON: None provided. FINDINGS CT HEAD BRAIN: Hypodensity of the white matter is nonspecific but likely represents chronic microvascular isc hemic disease. No acute intracranial hemorrhage. No CT evidence for acute territorial infarct. No mi dline shift or extra-axial collection. VENTRICLES: No hydrocephalus. Volume loss. ORBITS: The orbits are unremarkable. SINUSES AND MASTOIDS: The paranasal sinuses and mastoid air cells are clear. CTA NECK: Atherosclerotic plaque of the aorta. COMMON CAROTID ARTERIES: No significant stenosis. No dissection or occlusion. INTERNAL CAROTID ARTERIES Calcification of the right carotid bifurcation without evidence of stenosis . Calcification of the bilateral cavernous segments of the internal carotid arteries. VERTEBRAL ARTERIES: Calcification with mild stenosis of the mid right vertebral artery. Calcification of the mid left vertebral artery without evidence of stenosis. CTA HEAD ANTERIOR CEREBRAL ARTERIES: No significant stenosis. No occlusion. No aneurysm. MIDDLE CEREBRAL ARTERIES: No significant stenosis. No occlusion. No aneurysm. POSTERIOR CEREBRAL ARTERIES: No significant stenosis. No occlusion. No aneurysm. BASILAR ARTERY: No significant stenosis. No occlusion. No aneurysm. OTHER SOFT TISSUES: Small extracranial soft tissue hematoma anterior to the left frontal bone. BONES: Degenerative changes of the cervical spine. IMPRESSION: 1. Chronic parenchymal changes. No acute intracranial abnormality. 2. Scattered areas of calcification with mild stenosis of the mid right vertebral artery. No signifi cant stenosis or occlusion of the arteries of the head and neck. 3. Small extracranial soft tissue hematoma anterior to the left frontal bone. ELECTRONICALLY SIGNED BY: Lea Melara MD Dec 31, 2019 3:20:34 AM CDT This report is intended for review by the ordering physician only, in accordance of law. If you recei ve this report in error, please call [facility] at [phone]. FINAL REPORT EMERGENT AFTER HOURS CTA HEAD AND CTA NECK WITH CONTRAST: FINDINGS/IMPRESSION: I agree with the findings and impression given in the preliminary report per the [facility] phy sician. 1. No significant CTA abnormality of the neck. 2. No significant CTA abnormality of the head. 3. There is minimal calcified atherosclerotic disease in the intracranial right vertebral artery. CODE QA POS: BERONICA
[2019-12-31 08:20] LABS: Cardiac Risk 4.3 (Less than 4.5); Magnesium 1.8 mg/dL (1.6-2.6)
[2019-12-31] MEDS ORDERED: Citalopram 20 MG TAB PO SCH (09:00)
[2019-12-31] MEDS ORDERED: Lisinopril 20 MG TAB PO SCH (09:00)
[2019-12-31] MEDS ORDERED: Aspirin 81 mg Enteric Coated Tablet PO SCH (09:00)
[2019-12-31] MEDS ORDERED: Enoxaparin Sodium 40 MG/0.4 ML SYRINGE SC SCH (09:00)
[2019-12-31] MEDS ORDERED: Iopamidol 370 76% 100 ML VIAL ONE (09:12)
--- NOTE | 2019-12-31 11:28 | MRI ---
EXAM: MRI of the brain without contrast HISTORY: Head trauma. Horizontal nystagmus in both eyes COMPARISON: None TECHNIQUE: Multiplanar multisequence MR images were obtained of the brain without IV contrast. FINDINGS: This exam is limited secondary to motion artifact. Extensive scattered foci of high T2/FLAIR signal in the subcortical and periventricular white matter are likely secondary to small vessel ischemic disease. These are also seen in the deepali. No restricted diffusion. No hydronephrosis. No extra-axial fluid collection or intracranial hemorrhage. The expected flow voids are present. Corpus callosum, pituitary, and craniocervical junction are within normal limits. The calvarium and overlying soft tissues are unremarkable. The paranasal sinuses and mastoid air cells are well aerated. IMPRESSION: Extensive small vessel ischemic disease without acute intracranial abnormality.
--- NOTE | 2019-12-31 12:08 | CON ---
DATE OF CONSULTATION: 12/31/2019 CONSULTING PHYSICIAN: Hospitalist Services. IMPRESSION: Vertigo with headache of uncertain etiology. PLAN: MRI of the brain to rule out stroke. HISTORY OF PRESENT ILLNESS: Ms. Andres is an 84-year-old woman with a past history of hypertension, hypothyroidism, and a prior attack of vertigo a few years ago. She presented yesterday with persistent vertigo associated with nausea and vomiting. She had a diffuse headache. There was no hearing loss associated with it. She denied any slurred speech. Her vision was blurred. She denied any lateralized weakness or numbness. Her initial CT and CT angiogram were both unremarkable. Her symptoms have subsided, although she still has some slight feeling of dizziness. She was able to walk with physical therapy earlier today. PAST MEDICAL HISTORY: As listed above. ALLERGIES: PER CHART. FAMILY HISTORY: Unremarkable. MEDICATIONS: List was reviewed. REVIEW OF SYSTEMS: Ten-system review of systems is otherwise negative. PHYSICAL EXAMINATION: VITAL SIGNS: Blood pressure 145/66, pulse 72, respirations 16, and temperature 98.6. HEENT: She is a healthy-appearing elderly lady, in no acute distress. HEENT: Pupils equal. Conjunctivae clear. Oropharynx clear. No nystagmus noted. NECK: Supple. No lymphadenopathy. EXTREMITIES: No cyanosis, clubbing or edema. CARDIOVASCULAR: Regular rate and rhythm. LUNGS: Clear. ABDOMEN: Soft and nontender. NEUROLOGIC: She is alert and appropriate. Her speech is fluent and clear. Cranial nerves were intact. Motor exam showed good strength bilaterally. There is no fix or drift. Sensation was intact to touch. No abnormal movements were seen. LABORATORY STUDIES: Unremarkable CBC and serum chemistry panel. IMAGING STUDIES: CT and CT angiogram were reviewed. EKG, normal sinus rhythm. SUMMARY: Elderly lady with some prolonged dizziness, nausea, vomiting and headache, uncertain etiology. Posterior circulation stroke would be a concern. I agree with starting her on aspirin and proceeding with the MRI of the brain. Job ID: [id number]
[2019-12-31 15:37] VITALS: BP 142/74; TEMP 98.4
--- NOTE | 2019-12-31 16:23 | DIS ---
DATE OF ADMISSION: 12/31/2019 DATE OF DISCHARGE: 12/31/2019 DISCHARGE DISPOSITION: Home. FOLLOWUP: 1. Follow up with Fiona Rodriguez, nurse practitioner, in 3 days. 2. Follow up with ENT and Ophthalmology in 2 to 3 days. ALLERGIES: NO KNOWN DRUG ALLERGIES. DISCHARGE MEDICATIONS: 1. Aspirin 81 mg daily. 2. Multivitamin one tablet daily. 3. Vitamin B12 1000 mcg daily. 4. Meclizine as needed. All other home medications were left unchanged. The patient was advised to discontinue NSAID. The patient was seen and examined on the day of discharge. Denies any new complaints. Orthostatic vitals were negative. VITAL SIGNS: Showed temperature 98.1, pulse 70, respiration 20, blood pressure 142/74 with O2 saturation 96% on room air. LABORATORY DATA: Fasting lipid profile showed cholesterol 225, LDL 152, and HDL 52. Vitamin B12 was 419, folic acid 10.5. CT scan of the brain was negative for acute CVA. CT angiogram of the head and neck was negative for hemodynamically significant stenosis. MRI of the brain showed extensive small-vessel ischemic disease without acute CVA. Echocardiogram showed left ventricular ejection fraction of 60% to 65% with mild concentric left ventricular hypertrophy. BRIEF HOSPITAL COURSE: The patient is an 84-year-old female with hypertension, who presented to the hospital with nausea and vomiting along with vertigo. Please refer to the history and physical for further details. The patient was admitted to the hospital with a diagnosis of suspected posterior stroke. She was monitored in the stroke unit. She was started on antiplatelet agent. She was evaluated by Neurology as well. Her MRI of the brain was negative for CVA. Echocardiogram was done as discussed above. Her symptoms were improved with meclizine. Due to extensive small-vessel ischemic disease, low-dose aspirin was started. The patient will continue statins and outpatient dizziness and balance program will be arranged. She will benefit from an ENT and Ophthalmology evaluation as outpatient. She was advised to follow up with Neurology as outpatient. Social history: Patient lives at home with her who is DPOA. No smoking. FINAL DIAGNOSES: 1. Peripheral vertigo. 2. Hypertension. 3. Hypothyroidism. 4. Dehydration on admission. 5. Hyponatremia with sodium 133 on admission. 6. Hyperlipidemia. 7. Chronic kidney disease, stage 3. 8. Nausea and vomiting secondary to peripheral vertigo. The patient understands the above plan of care. Fall precaution was emphasized. Job ID: [id number] [email or web address]
[2019-12-31] MEDS ORDERED: Atorvastatin Calcium 40 MG TAB PO SCH (21:00)
[2019-12-31] MEDS ORDERED: Temazepam 15 MG CAP PO SCH (21:00)
== END 2019-12-31 16:07 | disposition home or self-care (01) ==
LOC: ERS 01:29 → 2SE 02:37
PROVIDERS: ADMIT Internal Medicine; ATTEND Internal Medicine
DX: H81.399 Other peripheral vertigo, unspecified ear (principal); I12.9 Hypertensive chronic kidney disease with stage 1 through stage 4 chronic kidney disease, or unspecified chronic kidney disease; N18.3 Chronic kidney disease, stage 3 (moderate); E03.9 Hypothyroidism, unspecified; E86.0 Dehydration; E87.1 Hypo-osmolality and hyponatremia; E78.5 Hyperlipidemia, unspecified; M81.0 Age-related osteoporosis without current pathological fracture; I65.01 Occlusion and stenosis of right vertebral artery; F32.9 Major depressive disorder, single episode, unspecified; S00.83XA Contusion of other part of head, initial encounter; Z79.899 Other long term (current) drug therapy; W19.XXXA Unspecified fall, initial encounter
CPT/HCPCS: 36415; 70496; 70498; 70551; 80061; 82607; 82746; 83735; 93306; G0378; Q9967

== ENCOUNTER 2020-11-09 13:12 | Emergency (ER) | payer MEDICARE ==
[2020-11-09] MEDS ORDERED: Morphine 4 MG/ML VIAL ONE (13:59)
[2020-11-09] MEDS ORDERED: Ondansetron PF 4 MG/2 ML Vial ONE (13:59)
[2020-11-09 14:40] LABS: #Basophils 0.1 thou/uL (0.0-0.2); #Eosinphils 0.2 thou/uL (0.0-0.7); #Lymphocytes 1.4 thou/uL (1.20-3.40); #Monocytes 0.7 thou/uL (0.11-0.59); #Neutrophils 5.3 thou/uL (1.40-6.50); %Basophils 0.9 % (0.0-1.0); %Eosinophils 2.4 % (0.0-10.0); %Lymphocytes 18.2 % (21.0-51.0); %Monocytes 9.5 % (0.0-10.0); Hemoglobin 10.2 g/dL (12.0-16.0); Mean Corpuscular HGB CONC 31.6 g/dL (32.0-36.0); Mean Corpuscular Hemoglobin 24.5 pg (27.0-31.0); Mean Corpuscular Volume 77.6 fL (78.0-98.0); Mean Platelet Volume 7.2 fL (7.4-10.4); Platelet Count 259 thou/uL (130-400); RBC Distribution Width 15.2 % (11.5-14.5); Red Blood Cell (RBC) Count 4.16 mill/uL (4.20-5.40); White Blood Cell (WBC) Count 7.7 thou/uL (4.8-10.8)
[2020-11-09 15:02] LABS: ALT (SGPT) Less than 7 U/L (8-55); AST (SGOT) 11 U/L (5-34); Albumin 3.8 g/dL (3.4-4.8); Alkaline Phosphatase 167 U/L (40-110); Anion Gap 11 mmol/L (10-20); BUN (Urea Nitrogen) 12 mg/dL (9.8-20.1); Bilirubin, Total 0.4 mg/dL (0.2-1.2); Calc. Creatinine Clearance 0 mL/min (70-130); Calcium 8.5 mg/dL (7.8-10.44); Carbon Dioxide 24 mmol/L (23-31); Chloride 103 mmol/L (98-107); Globulin 2.6 g/dL (2.4-3.5); Glucose 100 mg/dL (83-110); Potassium 4.2 mmol/L (3.5-5.1); Protein, Total 6.4 g/dL (5.8-8.1); Sodium 134 mmol/L (136-145)
[2020-11-09 15:47] LABS: Bacteria/HPF 4+ HPF (None Seen); Bilirubin Negative (Negative); Blood, Urine Negative (Negative); Clarity Turbid (Clear); Glucose, Urine (Dipstick) Normal (Negative); Ketone, Urine Negative (Negative); Leukocyte 250 Leu/uL (Negative); Nitrite Negative (Negative); Protein, Urine (Dipstick) Negative (Neg-Trace); RBC/HPF None Seen HPF (0-3); Renal Epithelial 0-3 HPF (None Seen); Specific Gravity, Urine 1.012 (1.002-1.036); Squamous Epithelial 0-3 HPF (0-3); Urobilinogen Normal mg/dL (Less than 2); pH, Urine 5.5 (5.0-9.0)
[2020-11-09] MEDS ORDERED: cefTRIAXone\\ROCEPHIN 1 GM VIAL ONE (16:15)
== END 2020-11-09 23:26 ==
LOC: ERS 13:12
DX: S32.10XA Unspecified fracture of sacrum, initial encounter for closed fracture (principal); N39.0 Urinary tract infection, site not specified; E03.9 Hypothyroidism, unspecified; I10 Essential (primary) hypertension; Z79.899 Other long term (current) drug therapy; W18.30XA Fall on same level, unspecified, initial encounter
CPT/HCPCS: 36415; 72131; 72192; 80053; 81003; 81015; 85025; 87077; 87086; 87186; 96365; J0696; J2270; J2405